=== PATIENT | male | born 2005 | race Two or more races ===

== ENCOUNTER 2025-01-16 01:15 | Emergency (ER) | payer MEDICAID, SELFPAY ==
[2025-01-16 01:32] VITALS: BP 135/86; PULSE 80; RESP 20; TEMP 36.9; O2SAT 96; BMI 29.8
--- NOTE | 2025-01-16 01:38 | XR_ITS ---
Examination: PA chest single view TECHNIQUE: Upright PA chest single view Date and time: January 16, 2025 0139 hours INDICATIONS: Coughing beginning 2 weeks ago. FINDINGS: Normal heart size. Lungs are clear. The osseous structures are intact IMPRESSION: No active disease.
--- NOTE | 2025-01-16 01:39 | EDNOTE_ITS ---
ED SOB =RME/HPI General Chief Complaint: Shortness of Breath/Dyspnea Stated Complaint: COUGH, SOB Time Seen by Provider: 01/16/25 01:38 Arrival date/time: 01/16/25 01:15 19M with history of asthma presents to ED with 2 week of cough and some SOB. Limitations: no limitations Related Data Previous Rx's ?Medication ?Instructions ?Recorded ibuprofen 600 mg tablet 600 mg PO Q6H #30 tabs 05/14 ondansetron 4 mg disintegrating 4 mg PO Q8H PRN nausea and 11/25/22 tablet vomiting #15 tabs ibuprofen 800 mg tablet 800 mg PO TID PRN pain #30 t abs 10/23/23 albuterol sulfate 90 mcg/actuation 2 puff inhalation Q 6H PRN 01/16/25 aerosol inhaler (Ventolin HFA) shortness of breath or wheezing #8.5 grams azithromycin 250 mg tablet See Rx Instructions PO .COM PLEX #6 01/16/25 tabs prednisone 50 mg tablet 50 mg PO QDAY 4 days #4 tabs 01/16/25 Allergies Allergy/AdvReac Type Severity Reaction Status Date / Time No Known Allergies Allergy Verified 11/25/22 00:14 Review of Systems Review of Systems Systems Reviewed: All systems reviewed, normal except as documented Constitutional Constitutional: Reports system reviewed and no additional complaints, except as documented, Denies fever(s) and Denies headache(s) ENT Ears, Nose, Mouth, and Throat: Denies disequilibrium and Denies headache(s) Cardiovascular Cardiovascular: Reports system reviewed and no additional complaints, except as documented, Denies chest pain and Reports dyspnea Respiratory Respiratory: Reports system reviewed and no additional complaints, except as documented, Reports as per HPI, Reports cough and Reports dyspnea Gastrointestinal Gastrointestinal: Reports system reviewed and no additional complaints, except as documented, Denies abdominal pain, Denies nausea and Denies vomiting Neurologic Neurologic: Reports system reviewed and no additional complaints, except as documented, Denies confusion, Denies disequilibrium and Denies headache(s) Psychiatric Psychiatric: Denies confusion Past Medical History Past Medical History RESPIRATORY: Positive Asthma Social History SMOKING STATUS: Current some day smoker ED Exam General Limitations: Present no limitations General appearance: Present alert and in no apparent distress Head Head exam: Present atraumatic Eye Eye exam: Present normal appearance, PERRL and EOMI ENT ENT exam: Present normal exam, normal oropharynx and mucous membranes moist Neck Neck exam: Present normal inspection, full ROM and trachea midline Chest Chest inspection: Present normal inspection and symmetric chest wall rise Expanded Respiratory Exam Location: Right: rales Cardiovascular Cardiovascular exam: Present regular rate, normal rhythm and normal heart sounds Abdominal Exam Abdominal exam: Present soft and normal bowel sounds Extremities Exam Extremities exam: Present normal inspection and full ROM Back Exam Back exam: Present normal inspection and full ROM Neurological Exam Neurological exam: Present alert, oriented X3 and CN II-XII intact Psychiatric Psychiatric exam: Present normal affect and normal mood Skin Skin exam: Present warm, dry, intact and normal color Course Quality Measures none Orders Category Date Time Status XR chest 1V portable Stat Exams 01/16/25 01:38 Taken Dexamethasone Inj [Decadron Inj] Med 01/16/25 01:42 Discontinued 10 mg .ROUTE .STK-MED ONE Dexamethasone Inj [Decadron Inj] Med 01/16/25 01:38 Discontinued 10 mg PO X1 ONE Vital Signs Vital signs: Vital Signs Temperature 98.4 F 01/16/25 01:32 Pulse Rate 80 01/16/25 01:32 Respiratory Rate 20 01/16/25 01:32 Blood Pressure 135/86 H 01/16/25 01:32 Pulse Oximetry (%) 96 01/16/25 01:32 Oxygen Delivery Method Room Air 01/16/25 01:32 O2 at 96% on RA and WNLs Shortness of Breath / Dyspnea MDM Narrative MDM Narrative:: 19M with history of asthma presents to ED with 2 week of cough and some SOB. Physical exam reveals some rales in R lung, but normal WOB. Patient is afebrile, calm, and alert. Wet CXR no gross PNA pending official report. Given duration of cough, will treat with some ABX. Patient data External records reviewed:: [facility] previous records Clinical information provided by:: patient Social determinants that could affect healthcare access:: none Patient has the following chronic illnesses:: asthma How is presenting disease/condition affected by chronic disease/condition?: exacerbated by Evaluation data The following diagnostics were reviewed and interpreted by me:: radiology exam(s) Lab and/or radiology exams considered but not ordered:: ordered Interpretation Summary: above Medications / Prescriptions Medications or Prescriptions considered but not ordered:: ordered Medication administrations:: Medication Administration History Discontinued Medications Dexamethasone Sodium Phosphate (Dexamethasone Sod Phos Inj 10 Mg/Ml Vial) 10 mg PO X1 ONE Stop: 01/16/25 01:39 Last Admin: 01/16/25 01:47 Dose: 10 mg Documented By: CVL Dexamethasone Sodium Phosphate (Dexamethasone Sod Phos Inj 10 Mg/Ml Vial) Confirm Administered Dose 10 mg .ROUTE .STK-MED ONE Stop: 01/16/25 01:43 Last Admin: 01/16/25 01:47 Dose: Not Given Documented By: CVL Non-Admin Reason: Duplicate Medication on eMAR above Consultations Consultation(s) initiated? (list below): No Diagnosis Shortness of Breath Differential Diagnosis: acute exacerbation of chronic obstructive airways disease, congestive heart failure, community acquired pneumonia, asthma with exacerbation and pulmonary embolism Most likely diagnosis given after review of the tests above:: respiratory infection and asthma exacerbation Admission Indicated Admission indicated?: not indicated Admission Request Was there a request for admission?: No Disposition Plan Disposition Plan: Discharge Discharge Attestation Discharge Attestation: The patient and all family members were given an opportunity to ask questions and understood the discharge instructions. Discharge instructions specifically effects, indications for sooner follow up or return to the emergency department, and the expected course of current diagnosis. Patient condition: Stable Discharge Plan Plan Patient Disposition: HOME (Self Care) Discharge Disposition comment: Stable Prescriptions/Referrals Prescriptions/Med Rec: New azithromycin 250 mg tablet See Rx Instructions .ROUTE .COMPLEX Qty: 6 0RF Rx Instructions: For 250 mg dose pack: take 500 mg today (day 1), then 250 mg for 4 days (days 2-5) prednisone 50 mg tablet 50 mg PO QDAY 4 Days Qty: 4 0RF albuterol sulfate [Ventolin HFA] 90 mcg/actuation HFA aerosol inhaler 2 puff inhalation Q6H PRN (Reason: shortness of breath or wheezing) Qty: 8.5 0RF No Action ibuprofen 600 mg tablet 600 mg PO Q6H Qty: 30 0RF ondansetron 4 mg tablet,disintegrating 4 mg PO Q8H PRN (Reason: nausea and vomiting) Qty: 15 0RF ibuprofen 800 mg tablet 800 mg PO TID PRN (Reason: pain) Qty: 30 0RF Problem List Clinical Impression: Asthma with exacerbation, Respiratory infection Patient/Caregiver Discharge Instructions Education Materials: ED Asthma, Acute (Adult) Additional Instructions: Please follow-up with PCP within 24-48 hours and return immediately if symptoms worsen. Print Language: [place] Stand Alone Forms: Patient Portal Info Letter PA/OPERATIONS ACCOUNTANT Supervising Physician PA/OPERATIONS ACCOUNTANT Supervising Physician: Dr. Michael
[2025-01-16] MEDS: DEXAMETHASONE SOD PHOS INJ 10 MG/ML VIAL PO (01:47)
[2025-01-16 02:00] VITALS: RESP 20
== END 2025-01-16 02:01 | disposition home or self-care (01) ==
LOC: SERX 06:40
PROVIDERS: Emergency Provider Emergency Medicine; PCP Family Medicine
DX: J45.901 Unspecified asthma with (acute) exacerbation (principal); J98.8 Other specified respiratory disorders
CPT/HCPCS: 71045; 99283; J1100